=== PATIENT | female | born 1940 | race Caucasian/White ===

== ENCOUNTER 2024-11-26 13:35 | Emergency (ER) | payer MEDICARE ==
[~2024-11-26] VITALS: Ht 147.3 cm; Wt 67.3 kg
[2024-11-26 15:52] VITALS: BP 139/73; PULSE 90; RESP 20; TEMP 97.9; O2SAT 97
== END 2024-11-26 15:35 | disposition home or self-care (01) ==
LOC: ER 13:36
DX: S00.03XA Contusion of scalp, initial encounter (principal); F03.90 Unspecified dementia, unspecified severity, without behavioral disturbance, psychotic disturbance, mood disturbance, and anxiety; Z88.8 Allergy status to other drugs, medicaments and biological substances; Z91.041 Radiographic dye allergy status; W19.XXXA Unspecified fall, initial encounter; Y93.89 Activity, other specified; Y92.89 Other specified places as the place of occurrence of the external cause; Y99.8 Other external cause status
CPT/HCPCS: 70450; 99284